=== PATIENT | female | born 1980 | race Caucasian/White ===

== ENCOUNTER 2017-05-09 13:59 | Emergency (ER) | payer BC ==
[2017-05-09] MEDS ORDERED: PROMETHAZINE HCL INJ 25 MG/1 ML VIAL IV ONE (14:58)
[2017-05-09] MEDS ORDERED: NORMAL SALINE 1000 ML 1,000 ML IV ONE (14:58)
[2017-05-09] MEDS ORDERED: PROMETHAZINE HCL 25 MG TABLET PO ONE (14:58)
--- NOTE | 2017-05-09 14:58 | ER Document Report ---
ED Medical Screen (RME) - General Chief Complaint: Vomiting Stated Complaint: VOMITING Time Seen by Provider: 05/09/17 14:44 Mode of Arrival: Ambulatory Information source: Patient Notes: 36-year-old female with one previous similar episode in 2014 with sudden nausea vomiting dizziness presents with complaints of similar episode in 2014 Patient has had extensive workup for her vomiting episode Today patient vomited and immediately came in I have greeted and performed a rapid initial assessment of this patient. A comprehensive ED assessment and evaluation of the patient, analysis of test results and completion of the medical decision making process will be conducted by additional ED providers. PHYSICAL EXAMINATION: GENERAL: Well-appearing, well-nourished and in no acute distress. HEAD: Atraumatic, normocephalic. EYES: Pupils equal round extraocular movements intact, conjunctiva are normal. ENT: Nares patent NECK: Normal range of motion LUNGS: No respiratory distress Musculoskeletal: Normal range of motion NEUROLOGICAL: Normal speech, normal gait. PSYCH: Normal mood, normal affect. SKIN: Warm, Dry, normal turgor, no rashes or lesions noted. TRAVEL OUTSIDE OF THE [place] IN LAST 30 DAYS: No - Related Data Allergies/Adverse Reactions: Sulfa (Sulfonamide Antibiotics) Allergy (Verified 05/09/17 14:00) Past Medical History - Social History Chew tobacco use (# tins/day): No Frequency of alcohol use: Social Drug Abuse: None Renal/ Medical History: Denies: Hx Peritoneal Dialysis Past Surgical History: Reports: Hx Appendectomy Physical Exam - Vital signs Vitals: Temp Pulse Resp BP Pulse Ox 97.6 F 84 18 108/65 100 05/09/17 14:05 05/09/17 14:05 05/09/17 14:05 05/09/17 14:05 05/09/17 14:05 Course - Vital Signs Vital signs: Temp Pulse Resp BP Pulse Ox 97.6 F 84 18 108/65 100 05/09/17 14:05 05/09/17 14:05 05/09/17 14:05 05/09/17 14:05 05/09/17 14:05
--- NOTE | 2017-05-09 15:19 | ER Document Report ---
ED General - General Chief Complaint: Vomiting Stated Complaint: VOMITING Time Seen by Provider: 05/09/17 14:44 Mode of Arrival: Ambulatory Information source: Patient TRAVEL OUTSIDE OF THE [place] IN LAST 30 DAYS: No - Related Data Allergies/Adverse Reactions: Sulfa (Sulfonamide Antibiotics) Allergy (Verified 05/09/17 14:00) Past Medical History - General Information source: Patient - Social History Smoking Status: Never Smoker Chew tobacco use (# tins/day): No Frequency of alcohol use: Social Drug Abuse: None Patient has suicidal ideation: No Patient has homicidal ideation: No Renal/ Medical History: Denies: Hx Peritoneal Dialysis Past Surgical History: Reports: Hx Appendectomy Physical Exam - Vital signs Vitals: Temp Pulse Resp BP Pulse Ox 97.6 F 84 18 108/65 100 05/09/17 14:05 05/09/17 14:05 05/09/17 14:05 05/09/17 14:05 05/09/17 14:05 Course - Vital Signs Vital signs: Temp Pulse Resp BP Pulse Ox 97.6 F 84 18 108/65 100 05/09/17 14:05 05/09/17 14:05 05/09/17 14:05 05/09/17 14:05 05/09/17 14:05
--- NOTE | 2017-05-09 15:19 | ER Document Report ---
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 Sudden onset of nausea at 1200, extremely weak, vomited twice in EMS. No other symptoms that she can think of. Does not want to talk at this time. Will not open her eyes, wants to be left alone. Male significant other is now in the room. I gave her wet wash cloth and he is fanning her. She denies headache or abdominal pain. No chest pain or SOB. Zofran 4 mg IV was given by EMS, Phenergan 25 mg p.o. by the nurse and IV is infusing. She did eat today. Similar episode in 2013 (started at work too ) and was admitted at [facility] for 1 week. She was completely worked up including MRI scans which were all negative. She had a follow-up with gastroenterology and neurology. No PCP. TRAVEL OUTSIDE OF THE [place] 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 Lives with: Spouse/Significant other Family History: None Patient has suicidal ideation: No Patient has homicidal ideation: No Renal/ Medical History: Denies: Hx Peritoneal Dialysis Past Surgical History: Reports: Hx Appendectomy Review of Systems - Review of Systems Constitutional: No symptoms reported EENT: No symptoms reported Cardiovascular: No symptoms reported Respiratory: No symptoms reported Gastrointestinal: See HPI Genitourinary: No symptoms reported Female Genitourinary: No symptoms reported Musculoskeletal: No symptoms reported Skin: No symptoms reported Hematologic/Lymphatic: No symptoms reported Neurological/Psychological: No symptoms reported Physical Exam - Vital signs Vitals: Temp Pulse Resp BP Pulse Ox 97.8 F 80 18 110/60 100 05/09/17 14:03 05/09/17 14:03 05/09/17 14:03 05/09/17 14:03 05/09/17 14:03 Interpretation: Normal - General General appearance: Alert, Other - pale, eyes closed - HEENT Head: Normocephalic, Atraumatic Eyes: Normal Pupils: PERRL Neck: Supple. No: Lymphadenopathy - Respiratory Respiratory status: No respiratory distress Chest status: Nontender Breath sounds: Normal Chest palpation: Normal - Cardiovascular Rhythm: Regular Heart sounds: Normal auscultation Murmur: No - Abdominal Inspection: Normal Distension: No distension Bowel sounds: Hypoactive Tenderness: Nontender. No: Tender Organomegaly: No organomegaly - Back Back: Normal, Nontender - Extremities General upper extremity: Normal inspection, Nontender, Normal color, Normal ROM , Normal temperature General lower extremity: Normal inspection, Nontender, Normal color, Normal ROM , Normal temperature, Normal weight bearing. No: Nitish's sign - Neurological Neuro grossly intact: Yes Cognition: Normal Orientation: AAOx4 Doe Coma Scale Eye Opening: Spontaneous [place] Coma Scale Verbal: Oriented Doe Coma Scale Motor: Obeys Commands Doe Coma Scale Total: 15 Speech: Normal Motor strength normal: LUE, RUE, LLE, RLE Sensory: Normal - Psychological Associated symptoms: Normal affect, Normal mood - Skin Skin Temperature: Warm Skin Moisture: Dry Skin Color: Normal Course - Re-evaluation Re-evalutation: 05/09/17 16:[address] Campbell's guardian who spoke with the patient in PT and would prefer 5 mg Haldol and Benadryl 50 mg IV for the nausea. 05/09/17 16:20 pt still will not move from left side. 05/09/17 16:42 Patient is now on right side. She was able to get up and walk stably to the bathroom after the Haldol. Labs are normal pending test. 05/09/17 17:19 neg test, feels better but still will not open eyes and look at me. states phenergan usually helps at home. - Vital Signs Vital signs: Temp Pulse Resp BP Pulse Ox 97.6 F 84 18 108/65 100 05/09/17 14:05 05/09/17 14:05 05/09/17 14:05 05/09/17 14:05 05/09/17 14:05 - Laboratory Result Diagrams: 05/09/17 15:30 05/09/17 15:30 Laboratory results interpreted by me: 05/09/17 15:30 Seg Neutrophils % 85.4 H Lymphocytes % 9.2 L Absolute Neutrophils 8.3 H Discharge - Discharge Clinical Impression: Nausea and vomiting Qualifiers: Vomiting type: unspecified Vomiting Intractability: non-intractable Qualified Code(s): R11.2 - Nausea with vomiting, unspecified Condition: Good Disposition: HOME, SELF-CARE Instructions: Vomiting ([facility]), Intravenous (IV) Fluids ([facility]), Antinausea Medication ([facility]), Gastroenterology, Family Physicians / Practices Additional Instructions: plenty of fluids tonight to er if worse see [facility] if persists copy of labs given to you family practice doctor referral Prescriptions: Promethazine HCl [Phenergan 25 mg Supp.rect] 25 mg MO Q4HP PRN #24 supp.rect PRN Reason: Promethazine HCl [Phenergan 25 mg Tablet] 25 mg PO Q4HP PRN #30 tablet PRN Reason: Forms: Return to Work
[2017-05-09] MEDS ORDERED: ONDANSETRON HCL INJ/PF 4 MG/2 ML SDV IV ONE (15:28)
[2017-05-09 15:44] LABS: ABSOLUTE EOSINOPHILS # (AUTO) 0.1 10^3/uL (0.0-0.6); ABSOLUTE LYMPHOCYTES (AUTO) 0.9 10^3/uL (0.5-4.7); ABSOLUTE MONOCYTES (AUTO) 0.4 10^3/uL (0.1-1.4); ABSOLUTE NEUT (AUTO) 8.3 10^3/uL (1.7-8.2); BASOPHILS % (AUTO) 0.3 % (0-2); EOSINOPHILS % (AUTO) 1.2 % (0-6); HEMATOCRIT 36.1 % (36.0-47.0); HEMOGLOBIN 12.4 g/dL (12.0-15.5); LYMPHOCYTES % (AUTO) 9.2 % (13-45); MEAN CORPUSCULAR HEMOGLOBIN 31.1 pg (27.0-33.4); MEAN CORPUSCULAR HGB CONC 34.4 g/dL (32.0-36.0); MEAN CORPUSCULAR VOLUME 90 fl (80-97); MONOCYTES % (AUTO) 3.9 % (3-13); PLATELET COUNT 255 10^3/uL (150-450); SEGMENTED NEUTROPHILS % (AUTO) 85.4 % (42-78); TOTAL CELLS COUNTED % (AUTO) 100 %; WHITE BLOOD COUNT 9.8 10^3/uL (4.0-10.5)
[2017-05-09 15:57] LABS: ALANINE AMINOTRANSFERASE 26 U/L (9-52); ALBUMIN 4.3 g/dL (3.5-5.0); ALKALINE PHOSPHATASE 70 U/L (38-126); ANION GAP 12 (5-19); ASPARTATE AMINO TRANSFERASE 19 U/L (14-36); BILIRUBIN,DIRECT 0.1 mg/dL (0.0-0.4); BILIRUBIN,TOTAL 0.4 mg/dL (0.2-1.3); BLOOD UREA NITROGEN 10 mg/dL (7-20); CALCIUM 9.4 mg/dL (8.4-10.2); CARBON DIOXIDE 25 mmol/L (22-30); CHLORIDE 102 mmol/L (98-107); GLUCOSE 94 mg/dL (75-110); POTASSIUM 4.3 mmol/L (3.6-5.0); SODIUM 138.9 mmol/L (137-145); TOTAL PROTEIN 6.7 g/dL (6.3-8.2)
[2017-05-09] MEDS ORDERED: METOCLOPRAMIDE HCL INJ/PF 10 MG/2 ML SDV IV ONE (16:08)
[2017-05-09] MEDS ORDERED: DIPHENHYDRAMINE HCL 50 MG/ML VIAL IV ONE ×2 (16:08)
[2017-05-09] MEDS ORDERED: HALOPERIDOL LACTATE INJ 5 MG/1 ML VIAL IV ONE (16:12)
[2017-05-09 16:32] VITALS: BP 110/60
== END 2017-05-09 17:35 | disposition home or self-care (01) ==
LOC: ER 13:59
DX: R11.2 Nausea with vomiting, unspecified (principal); R53.1 Weakness
CPT/HCPCS: 99284; 96361; 96374; 96375; 36415; 83735; 84703; 85025; 80053; J1200; J1630; J2405; J7030

== ENCOUNTER 2018-02-22 06:54 | Inpatient (IN) | payer BC ==
--- NOTE | 2018-02-22 07:09 | ER Document Report ---
ED General <GERMAIN SUMMERS - Last Filed: 02/22/18 08:02> - General Mode of Arrival: Ambulatory Information source: Patient TRAVEL OUTSIDE OF THE [place] IN LAST 30 DAYS: No <TESS JOYCE - Last Filed: 02/22/18 08:08> - General Chief Complaint: Ankle Injury Stated Complaint: RIGHT ANKLE PAIN Time Seen by Provider: 02/22/18 07:04 Notes: Patient is a 37 year old female with Mc's presents to the emergency department complaining of right ankle pain secondary a mechanical trip and fall. Patient states she was on her front porch this morning when she tripped over one step and twisted her right ankle at approximately 0515. Patient denies any other focal symptoms. Patient is currently prescribed Synthroid 112. (TESS JOYCE) - Related Data Allergies/Adverse Reactions: Sulfa (Sulfonamide Antibiotics) Allergy (Verified 05/09/17 14:00) Past Medical History - General Information source: Patient - Social History Smoking Status: Never Smoker Cigarette use (# per day): No Chew tobacco use (# tins/day): No Smoking Education Provided: No Frequency of alcohol use: None Family History: None Past Surgical History: Reports: Hx Appendectomy <TESS JOYCE - Last Filed: 02/22/18 08:08> Review of Systems - Review of Systems Constitutional: No symptoms reported EENT: No symptoms reported Cardiovascular: No symptoms reported Respiratory: No symptoms reported Gastrointestinal: No symptoms reported Genitourinary: No symptoms reported Female Genitourinary: No symptoms reported Musculoskeletal: See HPI Skin: No symptoms reported Hematologic/Lymphatic: No symptoms reported Neurological/Psychological: No symptoms reported -: Yes All other systems reviewed and negative <TESS JOYCE - Last Filed: 02/22/18 08:08> Physical Exam <GERMAIN SUMMERS - Last Filed: 02/22/18 08:02> <TESS JOYCE - Last Filed: 02/22/18 08:08> - Vital signs Vitals: Temp Pulse Resp BP Pulse Ox 97.3 F 120 H 20 92/56 L 95 02/22/18 06:59 02/22/18 06:59 02/22/18 06:59 02/22/18 06:59 02/22/18 06:59 - Notes Notes: GENERAL: Alert, interacts well, appears uncomfortable. HEAD: Normocephalic, atraumatic. EYES: Pupils equal, round, and reactive to light. Extraocular movements intact. ENT: Oral mucosa moist, tongue midline. NECK: Full range of motion. Supple. Trachea midline. LUNGS: Clear to auscultation bilaterally, no wheezes, rales, or rhonchi. No respiratory distress. HEART: Regular rate and rhythm. No murmurs, gallops, or rubs. ABDOMEN: Soft, non-tender. Non-distended. Bowel sounds present in all 4 quadrants. EXTREMITIES: Moves all 4 extremities spontaneously. Right ankle appears to be fractured dislocated. Right ankle is rotated laterally with distal tibia protruding. Right foot is cool to touch, delayed capillary refill, numbness of all toes. After reduction the right foot is warm, patient no longer reports any numbness of the toes, good capillary refill, and patient denies any pain. NEUROLOGICAL: Alert and oriented x3. Normal speech. PSYCH: Normal affect, normal mood. SKIN: Dry, normal turgor. No rashes or lesions noted. (TESS JOYCE) Course - Laboratory Result Diagrams: 02/22/18 07:51 02/22/18 07:51 - Consults Dr. David Time consulted: 07:55 Consulted provider: will see as inpatient <GERMAIN SUMMERS - Last Filed: 02/22/18 08:02> - Laboratory Result Diagrams: 02/22/18 07:51 02/22/18 07:51 <TESS JOYCE - Last Filed: 02/22/18 08:08> - Vital Signs Vital signs: Temp Pulse Resp BP Pulse Ox 97.3 F 120 H 14 92/56 L 100 02/22/18 06:59 02/22/18 06:59 02/22/18 07:13 02/22/18 06:59 02/22/18 07:15 - Laboratory Laboratory results interpreted by me: 02/22/18 07:51 WBC 15.6 H Hct 35.7 L Seg Neutrophils % 87.1 H Lymphocytes % 7.5 L Absolute Neutrophils 13.5 H Procedures - Joint Reduction/Fracture Care Right Ankle Time completed: 07:45 Consent obtained: Yes - Verbal Conscious sedation: No Pre-procedure NV exam: Yes - Foot cool to touch, cap refill delayed, numbness to toes Fracture: Closed Manipulation comment: Downward traction while pushing the foot and talus anteriorly and laterally Post-procedure NV exam: Yes Post-reduction x-ray: Joint reduced Reduction attempts: 1 Complications: No <GERMAIN SUMMERS - Last Filed: 02/22/18 08:02> <TESS JOYCE - Last Filed: 02/22/18 08:08> - Joint Reduction/Fracture Care Right Ankle Notes: 02/22/18 08:00 Patient was given 50 mg of fentanyl IV, she remained completely alert oriented still experiencing some pain when the joint was reduced. Post reduction, the foot became more warm, capillary refill was normal, and there was no numbness to the toes. After the ankle was splinted, the patient reported that she was no longer experiencing any pain or discomfort. (GERMAIN SUMMERS) Critical Care Note - Critical Care Note Total time excluding time spent on procedures (mins): 30 - Patient required urgent reduction of the fracture dislocated ankle due to what appeared to be some vascular compromise. Time was spent reviewing the patient's history and physical, reviewing the x-rays, making a plan for urgent treatment. Phone calls were made to the orthopedic surgeon to arrange for admission and surgical repair. Postreduction x-rays were reviewed. <GERMAIN SUMMERS - Last Filed: 02/22/18 08:02> Discharge - Discharge Admitting Provider: Dr. David Unit Admitted: Surgical Floor <GERMAIN SUMMERS - Last Filed: 02/22/18 08:02> <TESS JOYCE - Last Filed: 02/22/18 08:08> - Discharge Clinical Impression: Trimalleolar fracture of right ankle Qualifiers: Encounter type: initial encounter Fracture type: closed Qualified Code(s): S82.851A - Displaced trimalleolar fracture of right lower leg, initial encounter for closed fracture Fracture dislocation of ankle joint Qualifiers: Encounter type: initial encounter Fracture type: closed Laterality: right Qualified Code(s): S82.891A - Other fracture of right lower leg, initial encounter for closed fracture Condition: Stable Disposition: ADMITTED INPATIENT Scribe Attestation: 02/22/18 07:57 I personally performed the services described in the documentation, reviewed and edited the documentation which was dictated to the scribe in my presence, and it accurately records my words and actions. (GERMAIN SUMMERS) Scribe Documentation - Scribe Written by Shaan:: Shaan Carrillo, 02/22/2018 07:21 acting as scribe for :: Mirian <TESS JOYCE - Last Filed: 02/22/18 08:08>
[2018-02-22] MEDS ORDERED: FENTANYL CITRATE INJ/PF 100 MCG/2 ML AMPUL IV ONE ×2 (07:16→07:48)
[2018-02-22] MEDS ORDERED: ONDANSETRON HCL INJ/PF 4 MG/2 ML SDV IV ONE (07:16)
--- NOTE | 2018-02-22 07:50 | RADIOLOGY REPORT (SQ) ---
CLINICAL DATA: 37-year-old female status post fall off steps TECHNICAL DATA: Two x-ray views of the right ankle were performed on 02/22/2018 at 7:33 AM. COMPARISONS: None FINDINGS: There is a displaced oblique fracture through the distal fibular diaphysis with anterior apex angulation of the fracture fragments. There is also a displaced fracture through the posterior malleolus and comminuted displaced fracture of the medial malleolus with dislocation of the ankle joint. Bone mineralization is normal. No degenerative or arthritic changes are identified. The remainder of the right ankle is unremarkable. There are no lytic or sclerotic bone lesions. There is soft tissue swelling surrounding the right ankle. IMPRESSION: 1. Displaced oblique fracture through the distal fibular diaphysis with anterior apex angulation of the fracture fragments. 2. Displaced posterior and medial malleolar fractures with dislocation of the ankle joint. 3. Surrounding soft tissue swelling.
[2018-02-22 08:03] LABS: ABSOLUTE EOSINOPHILS # (AUTO) 0.2 10^3/uL (0.0-0.6); ABSOLUTE LYMPHOCYTES (AUTO) 1.2 10^3/uL (0.5-4.7); ABSOLUTE MONOCYTES (AUTO) 0.6 10^3/uL (0.1-1.4); ABSOLUTE NEUT (AUTO) 13.5 10^3/uL (1.7-8.2); BASOPHILS % (AUTO) 0.2 % (0-2); EOSINOPHILS % (AUTO) 1.4 % (0-6); HEMATOCRIT 35.7 % (36.0-47.0); HEMOGLOBIN 12.5 g/dL (12.0-15.5); LYMPHOCYTES % (AUTO) 7.5 % (13-45); MEAN CORPUSCULAR HEMOGLOBIN 31.6 pg (27.0-33.4); MEAN CORPUSCULAR HGB CONC 34.9 g/dL (32.0-36.0); MEAN CORPUSCULAR VOLUME 91 fl (80-97); MONOCYTES % (AUTO) 3.8 % (3-13); PLATELET COUNT 305 10^3/uL (150-450); RED BLOOD COUNT 3.94 10^6/uL (3.72-5.28); RED CELL DISTRIBUTION WIDTH 13.3 % (11.5-14.0); SEGMENTED NEUTROPHILS % (AUTO) 87.1 % (42-78); TOTAL CELLS COUNTED % (AUTO) 100 %; WHITE BLOOD COUNT 15.6 10^3/uL (4.0-10.5)
[2018-02-22 08:25] LABS: ALANINE AMINOTRANSFERASE 13 U/L (9-52); ALBUMIN 3.9 g/dL (3.5-5.0); ALKALINE PHOSPHATASE 81 U/L (38-126); ANION GAP 6 (5-19); ASPARTATE AMINO TRANSFERASE 18 U/L (14-36); BILIRUBIN,DIRECT 0.2 mg/dL (0.0-0.4); BILIRUBIN,TOTAL 0.5 mg/dL (0.2-1.3); BLOOD UREA NITROGEN 10 mg/dL (7-20); CALCIUM 9.4 mg/dL (8.4-10.2); CARBON DIOXIDE 28 mmol/L (22-30); CHLORIDE 106 mmol/L (98-107); GLUCOSE 92 mg/dL (75-110); POTASSIUM 4.1 mmol/L (3.6-5.0); SODIUM 140.3 mmol/L (137-145); TOTAL PROTEIN 6.7 g/dL (6.3-8.2)
--- NOTE | 2018-02-22 08:45 | RADIOLOGY REPORT (SQ) ---
EXAM DESCRIPTION: ANKLE RIGHT AP/LATERAL COMPLETED DATE/TIME: 02/22/2018 8:21 am REASON FOR STUDY: POST REDUCTION COMPARISON: 02/22/2018 NUMBER OF VIEWS: Three views. TECHNIQUE: AP, lateral, and oblique radiographic images acquired of the right ankle. LIMITATIONS: None. FINDINGS: MINERALIZATION: Normal. BONES: Half--plaster cast is present. Interval reduction of the right ankle fractures since the gregg or study. Position of the medial malleolus, posterior malleolus and distal fibula fractures maintain ed. No evidence of dislocation. JOINTS: No effusions. SOFT TISSUES: No soft tissue swelling. No foreign body. OTHER: No other significant finding. IMPRESSION: 1. Interval reduction of the right ankle fractures since the prior study performed aziza ier on the same date. TECHNICAL DOCUMENTATION: JOB ID: [id number] [employer]- All Rights Reserved Reading location - IP/workstation name: [email or web address]
[2018-02-22 09:53] LABS: APPEARANCE,URINE CLEAR; BILIRUBIN,URINE NEGATIVE (NEGATIVE); COLOR,URINE STRAW; GLUCOSE, URINE NEGATIVE (NEGATIVE); KETONES,URINE TRACE mg/dL (NEGATIVE); LEUKOCYTE ESTERASE,URINE NEGATIVE (NEGATIVE); NITRITE,URINE NEGATIVE (NEGATIVE); PROTEIN,URINE NEGATIVE (NEGATIVE); URINE SPECIFIC GRAVITY 1.009; UROBILINOGEN,URINE NEGATIVE mg/dL (<2.0)
[2018-02-22] MEDS ORDERED: FENTANYL CITRATE INJ/PF 100 MCG/2 ML AMPUL ONE (11:11)
[2018-02-22] MEDS ORDERED: ONDANSETRON 4 MG TAB.RAPDIS SL PRN (12:33)
[2018-02-22] MEDS: MORPHINE SULFATE 10 MG/ML INJ IV PRN ×3 (12:57→18:08)
[2018-02-22] MEDS: IBUPROFEN 800 MG in NORMAL SALINE 250 ML IV SCH ×2 (15:16→22:43)
[2018-02-22 17:02] LABS: HEMATOCRIT 35.8 % (36.0-47.0); HEMOGLOBIN 12.3 g/dL (12.0-15.5); MEAN CORPUSCULAR HEMOGLOBIN 31.2 pg (27.0-33.4); MEAN CORPUSCULAR HGB CONC 34.3 g/dL (32.0-36.0); MEAN CORPUSCULAR VOLUME 91 fl (80-97); PLATELET COUNT 299 10^3/uL (150-450); RED BLOOD COUNT 3.93 10^6/uL (3.72-5.28); RED CELL DISTRIBUTION WIDTH 13.4 % (11.5-14.0); WHITE BLOOD COUNT 11.9 10^3/uL (4.0-10.5)
[2018-02-22 17:28] LABS: ANION GAP 12 (5-19); BLOOD UREA NITROGEN 7 mg/dL (7-20); CALCIUM 9.2 mg/dL (8.4-10.2); CARBON DIOXIDE 25 mmol/L (22-30); CHLORIDE 105 mmol/L (98-107); GLUCOSE 99 mg/dL (75-110); POTASSIUM 3.9 mmol/L (3.6-5.0); SODIUM 141.5 mmol/L (137-145)
[2018-02-22] MEDS: OXYCODONE-ACETAMINOPHEN 5-325 MG TABLET PO PRN (19:40)
[2018-02-22] MEDS: ESCITALOPRAM OXALATE 10 MG TABLET PO SCH (22:43)
[2018-02-22] MEDS: LORATADINE 10 MG TABLET PO SCH (22:43)
[2018-02-22] MEDS: FERROUS SULFATE 325 MG TABLET PO SCH (22:43)
[2018-02-22] MEDS: TOPIRAMATE 25 MG TABLET PO SCH (22:44)
[2018-02-23] MEDS ORDERED: RINGERS SOLUTION,LACTATED 1,000 ML IV PRN
[2018-02-23] MEDS: OXYCODONE-ACETAMINOPHEN 5-325 MG TABLET PO PRN ×2 (00:11→05:38)
[2018-02-23] MEDS ORDERED: CEFAZOLIN 2 GM/D5W RTU 2 GM/50 ML RTUPB IV PRN (05:00)
[2018-02-23] MEDS: IBUPROFEN 800 MG in NORMAL SALINE 250 ML IV SCH ×3 (05:38→21:07)
[2018-02-23] MEDS: LEVOTHYROXINE SODIUM 0.112 MG TABLET PO SCH (05:38)
[2018-02-23] MEDS ORDERED: CEFAZOLIN INJ 1 GM VIAL ONE (06:35)
[2018-02-23] MEDS ORDERED: HYDROMORPHONE HCL INJ/PF 2 MG/ML AMPULE ONE (06:45)
[2018-02-23] MEDS ORDERED: FENTANYL CITRATE INJ/PF 100 MCG/2 ML AMPUL ONE (06:46)
[2018-02-23] MEDS ORDERED: MIDAZOLAM 2 MG/2 ML INJ ONE (06:46)
[2018-02-23] MEDS ORDERED: PROPOFOL INJ 200 MG/20 ML VIAL IV ONE (06:46)
[2018-02-23] MEDS ORDERED: PROMETHAZINE HCL INJ 25 MG/1 ML VIAL IV PRN (07:52)
[2018-02-23] MEDS ORDERED: DIPHENHYDRAMINE HCL 50 MG/ML VIAL IV PRN (07:52)
[2018-02-23] MEDS ORDERED: FENTANYL CITRATE INJ/PF 100 MCG/2 ML AMPUL IV PRN ×3 (07:52)
--- NOTE | 2018-02-23 08:16 | Operative Report ---
Operative Report DATE OF SURGERY: 02/23/18 PREOPERATIVE DIAGNOSIS: Right trimalleolar ankle fracture OPERATION: Open reduction internal fixation right trimalleolar ankle fracture SURGEON: MARITZA CUTLER ANESTHESIA: GA ESTIMATED BLOOD LOSS: 25 PROCEDURE: With the patient supine on the operative table the right lower extremity is prepped and draped in sterile fashion. The limb is elevated for exsanguination tourniquet inflated 280 torr. Longitudinal incisions made over the lateral surface of the distal fibula and sharp dissection was used to expose the underlying fracture subperiosteally. A 6-hole titanium [place] plate is applied and secured with 3 screws proximally and 3 screws distally. An incision is made over the medial malleolus and this is reduced under direct visualization using a dental pick. Subsequently 2 pins were placed to maintain this reduction. 2 x cannulated 4.0 millimeter screws were then advanced over the pins. Lastly a cannulated screw was placed posterior to anterior to secure the posterior malleolar fragment in anatomic position. The tourniquet is deflated. The wounds irrigated with bulb lavage. The wounds and closure is interrupted Vicryl followed by nylon. A sterile compressive dressing posterior plaster splint were applied the patient's return to PACU in satisfactory condition.
--- NOTE | 2018-02-23 08:20 | Discharge Summary ---
Discharge Summary (SDC) - Discharge Final Diagnosis: Right trimalleolar ankle fracture Date of Surgery: 02/23/18 Discharge Date: 02/23/18 Condition: Good Treatment or Instructions: Touchdown weightbearing restriction right lower extremity Prescriptions: Oxycodone HCl/Acetaminophen [Percocet 5-325 mg Tablet] 1 tab PO Q4HP PRN #60 tablet PRN Reason: Referrals: LAUREN SIM MD [Primary Care Provider] - Discharge Diet: As Tolerated, Regular Respiratory Treatments at Home: Deep Breathing/Coughing Discharge Activity: Balance Activity w/Rest, No Driving, No tub bath Home Care Assistance: None Needed Adaptive Devices on Discharge: Axillary Crutches Report the Following to Your Physician Immediately: Shortness of Breath, Fever over 101 Degrees, Drainage-Foul Smelling
--- NOTE | 2018-02-23 08:55 | RADIOLOGY REPORT (SQ) ---
EXAM DESCRIPTION: ANKLE RIGHT AP/LATERAL; NO CHG FLUORO COMPLETED DATE/TIME: 02/23/2018 8:31 am REASON FOR STUDY: ORIF RT ANKLE ASST WITH FLUORO IN OR COMPARISON: 02/22/2018 FLUOROSCOPY TIME: 0.3 minutes 4 digital radiographic images saved to PACS. TECHNIQUE: Intra-operative images acquired during surgical procedure to evaluate progress. NUMBER OF IMAGES: 4 digital radiographic images LIMITATIONS: None FINDINGS: In intra procedural imaging and fluoro during an ORIF of in M on in the right ankle trimal leolar fracture. Good alignment. Please see the operative report for further details IMPRESSION: Intra procedural imaging and fluoro COMMENT: Quality ID [id number]: Final reports for procedures using fluoroscopy that document radiation exp osure indices, or exposure time and number of fluorographic images (if radiation exposure indices are not available) Please consult full operative report of the attending physician for description of the procedure. TECHNICAL DOCUMENTATION: JOB ID: [id number] [employer]- All Rights Reserved Reading location - IP/workstation name: [email or web address]
--- NOTE | 2018-02-23 08:55 | RADIOLOGY REPORT (SQ) ---
EXAM DESCRIPTION: ANKLE RIGHT AP/LATERAL; NO CHG FLUORO COMPLETED DATE/TIME: 02/23/2018 8:31 am REASON FOR STUDY: ORIF RT ANKLE ASST WITH FLUORO IN OR COMPARISON: 02/22/2018 FLUOROSCOPY TIME: 0.3 minutes 4 digital radiographic images saved to PACS. TECHNIQUE: Intra-operative images acquired during surgical procedure to evaluate progress. NUMBER OF IMAGES: 4 digital radiographic images LIMITATIONS: None FINDINGS: In intra procedural imaging and fluoro during an ORIF of in M on in the right ankle trimal leolar fracture. Good alignment. Please see the operative report for further details IMPRESSION: Intra procedural imaging and fluoro COMMENT: Quality ID [id number]: Final reports for procedures using fluoroscopy that document radiation exp osure indices, or exposure time and number of fluorographic images (if radiation exposure indices are not available) Please consult full operative report of the attending physician for description of the procedure. TECHNICAL DOCUMENTATION: JOB ID: [id number] [employer]- All Rights Reserved Reading location - IP/workstation name: [email or web address]
[2018-02-23] MEDS ORDERED: VITAMIN E PO SCH (10:00)
[2018-02-23] MEDS ORDERED: [UNRECOGNIZED DRUG - OTHER] PO SCH (10:00)
[2018-02-23] MEDS ORDERED: ASCORBIC ACID PO SCH (10:00)
[2018-02-23] MEDS ORDERED: BIOTIN PO SCH (10:00)
[2018-02-23] MEDS ORDERED: (PENDING PHARMACY ID) (Ferrous Gluconate [Ferrous Gluconate] 324 MG) PO SCH (10:00)
[2018-02-23] MEDS ORDERED: LIDOCAINE 2% INJ-PF (20 MG/ML) 2 ML AMPUL ONE (14:57)
[2018-02-23] MEDS ORDERED: PHENYLEPHRINE HCL INJ/PF 10 MG/1 ML SDV ONE (14:57)
[2018-02-23] MEDS ORDERED: ONDANSETRON HCL INJ/PF 4 MG/2 ML SDV ONE (14:57)
[2018-02-23] MEDS ORDERED: DEXAMETHASONE SOD PHOSPHATE INJ 4 MG/1 ML VIAL ONE (14:57)
[2018-02-23] MEDS: LORATADINE 10 MG TABLET PO SCH (16:54)
[2018-02-23] MEDS: FERROUS SULFATE 325 MG TABLET PO SCH (16:54)
[2018-02-23] MEDS: ESCITALOPRAM OXALATE 10 MG TABLET PO SCH (16:56)
[2018-02-23] MEDS: TOPIRAMATE 25 MG TABLET PO SCH (21:05)
[2018-02-24] MEDS: OXYCODONE-ACETAMINOPHEN 5-325 MG TABLET PO PRN ×2 (05:52→10:26)
[2018-02-24] MEDS: IBUPROFEN 800 MG in NORMAL SALINE 250 ML IV SCH (05:53)
[2018-02-24] MEDS: LEVOTHYROXINE SODIUM 0.112 MG TABLET PO SCH (05:56)
[2018-02-24] MEDS: FERROUS SULFATE 325 MG TABLET PO SCH (10:33)
[2018-02-24] MEDS: ESCITALOPRAM OXALATE 10 MG TABLET PO SCH (10:34)
[2018-02-24] MEDS: LORATADINE 10 MG TABLET PO SCH (10:34)
[2018-02-24] MEDS: MORPHINE SULFATE 10 MG/ML INJ IV PRN (12:13)
[2018-02-24 12:17] VITALS: BP 78/50
[2018-02-26] MEDS ORDERED: (PENDING PHARMACY ID) (Semaglutide [Ozempic] 1 MG) SQ SCH (10:00)
== END 2018-02-24 13:40 | disposition home health service (06) | DRG 494 ==
LOC: ER 06:54 → EH 08:04 → 4W 14:47
PROVIDERS: ADMIT Orthopaedic Surgery; ATTEND Orthopaedic Surgery
PROC: 0SSFXZZ Reposition Right Ankle Joint, External Approach (ICD-10-PCS; 2018-02-22)
PROC: 0QSG04Z Reposition Right Tibia with Internal Fixation Device, Open Approach (ICD-10-PCS; 2018-02-23)
PROC: 0QSJ04Z Reposition Right Fibula with Internal Fixation Device, Open Approach (ICD-10-PCS; principal; 2018-02-23 07:30)
PROC: 3E02340 Introduction of Influenza Vaccine into Muscle, Percutaneous Approach (ICD-10-PCS; 2018-02-24)
DX: S82.851A Displaced trimalleolar fracture of right lower leg, initial encounter for closed fracture (principal); E06.3 Autoimmune thyroiditis; W10.9XXA Fall (on) (from) unspecified stairs and steps, initial encounter; Y92.008 Other place in unspecified non-institutional (private) residence as the place of occurrence of the external cause; Z88.2 Allergy status to sulfonamides; Z79.899 Other long term (current) drug therapy; Z90.49 Acquired absence of other specified parts of digestive tract; Z23 Encounter for immunization
CPT/HCPCS: 01480; 36415; 80048; 80053; 81001; 84703; 85025; 85027; 90471; 90686; 96374; 96375; 99291; C1713; C1769; G0008; J0690; J1100; J1170; J1741; J2250; J2270; J2370; J2405; J2704; J3010; J3490; J7050; J7120

== ENCOUNTER 2018-12-25 11:21 | Emergency (ER) | payer BC ==
--- NOTE | 2018-12-25 11:46 | ER Document Report ---
ED Medical Screen (RME) - General Chief Complaint: Shoulder Pain Stated Complaint: FALL/SHOULDER PAIN Time Seen by Provider: 12/25/18 11:37 Primary Care Provider: LAUREN SIM MD [Primary Care Provider] - Follow up as needed Notes: Patient is a 38-year-old female who presents emergency department with bilateral shoulder pain. She was walking down steps and fell backwards. She states that her right clavicle "popped out of place," and she was able to "pop it back in place." States that the left side still feels out of place. She states that she is able to move her left arm all the way up. Exam: Tender left shoulder. Full range of motion on right. 2+ radial pulses. Capillary refill less than 3 seconds. I have greeted and performed a rapid initial assessment of this patient. A comprehensive ED assessment and evaluation of the patient, analysis of test results and completion of medical decision making process will be conducted by an additional ED providers. TRAVEL OUTSIDE OF THE [place] IN LAST 30 DAYS: No - Related Data Allergies/Adverse Reactions: Sulfa (Sulfonamide Antibiotics) Allergy (Verified 05/09/17 14:00) Past Medical History - Social History Chew tobacco use (# tins/day): No Frequency of alcohol use: None Drug Abuse: None Renal/ Medical History: Denies: Hx Peritoneal Dialysis Past Surgical History: Reports: Hx Appendectomy Physical Exam - Vital signs Vitals: Temp Pulse Resp BP Pulse Ox 98.1 F 79 16 101/62 99 12/25/18 11:24 12/25/18 11:24 12/25/18 11:24 12/25/18 11:24 12/25/18 11:24 Course - Vital Signs Vital signs: Temp Pulse Resp BP Pulse Ox 98.1 F 79 16 101/62 99 12/25/18 11:24 12/25/18 11:24 12/25/18 11:24 12/25/18 11:24 12/25/18 11:24 Doctor's Discharge - Discharge Referrals: LAUREN SIM MD [Primary Care Provider] - Follow up as needed
--- NOTE | 2018-12-25 12:41 | ER Document Report ---
HPI - HPI Time Seen by Provider: 12/25/18 11:37 Pain Level: 4 Notes: Patient is a 38-year-old female no significant past medical history presents complaining of bilateral shoulder pain with the left being worse on the right status post injury prior to arrival. Patient states that she fell down a couple steps this morning and braced her fall with her arms and may have hit her shoulder in the process. Patient has not noticed any bruising or swelling. Patient states that her right clavicle may have shifted, but went back into place thereafter. Patient states that she has no pain at rest. Pain is there when she tries to do overhead activities with left shoulder area. No other concerns or complaints. No loss of consciousness. Denies any headache, fever, head injury, neck pain, changes in vision/speech/mentation/hearing, URI, sore throat, chest pain, palpitations, syncope, cough, shortness of breath, wheeze, dyspnea, abdominal pain, nausea/vomiting/diarrhea, urinary retention, dysuria, hematuria, loss of control of bowel or bladder, numbness/tingling, saddle anesthesia, muscle paralysis/weakness, or rash. - ROS Systems Reviewed and Negative: Yes All other systems reviewed and negative - NEURO Neurology: DENIES: Headache - REPRODUCTIVE Reproductive: DENIES: : - MUSCULOSKELETAL Musculoskeletal: REPORTS: Extremity pain Past Medical History - Social History Smoking Status: Never Smoker Chew tobacco use (# tins/day): No Frequency of alcohol use: None Drug Abuse: None Family History: None Patient has suicidal ideation: No Patient has homicidal ideation: No Pulmonary Medical History: Reports: Hx Tuberculosis - Mc's Renal/ Medical History: Denies: Hx Peritoneal Dialysis Past Surgical History: Reports: Hx Appendectomy, Hx Orthopedic Surgery - right ankle Vertical Provider Document - CONSTITUTIONAL Agree With Documented VS: Yes Notes: PHYSICAL EXAMINATION: GENERAL: Well-appearing, well-nourished and in no acute distress. Head: atraumatic. Eyes: PERRLA, EOMI b/l. NECK: Normal range of motion, supple without lymphadenopathy. Non-tender. Spurling negative. No rigidity/meningismus. LUNGS: Breath sounds clear to auscultation bilaterally and equal. No wheezes rales or rhonchi. HEART: Regular rate and rhythm without murmurs, rubs, gallops. Musculoskeletal: Shoulders b/l: FROM to passive/active. Strength 5+/5 due to pain. Neg speed test. No crepitus. No erythema or warmth. No deformity or ecchymosis. RC intact 5+/5 strength. + mild tenderness to palp posterior shou lder. Non-tender to palp of the right shoulder. + mild tenderness medial rt clavicle w/o any stepoff or swelling. Extremities: No cyanosis, clubbing, or edema b/l. Peripheral pulses 2+. Capillary refill less than 3 seconds. NEUROLOGICAL: Normal speech, normal gait. Normal sensory, motor exams. Cranial nerves grossly intact. PSYCH: Normal mood, normal affect. SKIN: Warm, Dry, normal turgor, no rashes or lesions noted. - INFECTION CONTROL TRAVEL OUTSIDE OF THE [place] IN LAST 30 DAYS: No Course - Re-evaluation Re-evalutation: 12/25/18 Patient is an afebrile, well-hydrated, 38-year-old female who presents to the ED with L>R shoulder pain which I suspect to be, benign. Vitals are acceptable without any significant tachycardia, tachypnea, or hypoxia. PE is otherwise unremarkable for any neurovascular compromise, obvious tendon/ligament rupture, obvious fracture/dislocation, septic joint. X-rays unremarkable for any acute pathology. Patient is nontoxic-appearing. No other labs or imaging warranted at this time based on H&P. Conservative measures otherwise for symptoms. Recheck with your PCM in 3-5 days. Consider consult orthopedics. Return to the ED with any worsening/concerning symptoms otherwise as reviewed in discharge. Patient is in agreement. - Vital Signs Vital signs: Temp Pulse Resp BP Pulse Ox 98.1 F 79 16 101/62 99 12/25/18 11:24 12/25/18 11:24 12/25/18 11:24 12/25/18 11:24 12/25/18 11:24 Discharge - Discharge Clinical Impression: Bilateral shoulder pain Qualifiers: Chronicity: acute Qualified Code(s): M25.511 - Pain in right shoulder Condition: Stable Disposition: HOME, SELF-CARE Additional Instructions: Rest, Ice, Compression, Elevation Tylenol/ibuprofen as needed Light stretches daily Strength exercises as able Moist heat and massage may help F/u with your PCP in 3-5 days for a recheck Consider consult(s) with Orthopedics/physical therapy for ongoing/worsening symptoms Return to the ED with any worsening symptoms and/or development of fever, headache, chest pain, palpitations, syncope, shortness of breath, trouble breathing, abdominal pain, n/v/d, muscle weakness/paralysis, numbness/tingling, swelling, redness, or other worsening symptoms that are concerning to you. Prescriptions: Ibuprofen [Motrin 800 mg Tablet] 800 mg PO Q8H PRN #15 tab PRN Reason: Referrals: LAUREN SIM MD [ACTIVE STAFF] - Follow up as needed ADAM BRADFORD JR, DO [ACTIVE PROVISIONAL STAFF] - Follow up as needed
[2018-12-25] MEDS ORDERED: IBUPROFEN 800 MG TABLET PO ONE (12:42)
--- NOTE | 2018-12-25 12:45 | RADIOLOGY REPORT (SQ) ---
EXAM DESCRIPTION: SHOULDER BILAT 2 OR MORE VIEWS COMPLETED DATE/TIME: 12/25/2018 12:27 pm REASON FOR STUDY: fall COMPARISON: None. NUMBER OF VIEWS: Three views. TECHNIQUE: Internal rotation, external rotation, and Y view images acquired of the right and left sh oulder. LIMITATIONS: None. FINDINGS: MINERALIZATION: Normal. BONES: No acute fracture. No worrisome bone lesions. JOINTS: No dislocation. VISUALIZED LUNGS AND RIBS: No pneumothorax. No rib fracture. SOFT TISSUES: No radiopaque foreign body. OTHER: No other significant finding. IMPRESSION: NEGATIVE STUDY OF THE RIGHT AND LEFT SHOULDERS. NO RADIOGRAPHIC EVIDENCE OF ACUTE INJURY . TECHNICAL DOCUMENTATION: JOB ID: [id number] [employer]- All Rights Reserved Reading location - IP/workstation name: [email or web address]
[2018-12-25 13:06] VITALS: BP 105/58
== END 2018-12-25 13:05 | disposition home or self-care (01) ==
LOC: ER 11:21
DX: M25.511 Pain in right shoulder (principal); M25.512 Pain in left shoulder; W10.9XXA Fall (on) (from) unspecified stairs and steps, initial encounter
CPT/HCPCS: 99283

== ENCOUNTER → 2019-10-10 | Outpatient (CLI) | payer BC | LOC: OD 09:47 | PROVIDERS: ATTEND Otolaryngology | DX: J30.9 Allergic rhinitis, unspecified (principal) | CPT/HCPCS: 36415; 82785; 86003 ==